=== PATIENT | female | born 1965 | race Caucasian/White ===

== ENCOUNTER 2024-06-29 18:35 | Emergency (ER) | payer OTHER, MEDICAID, SELFPAY ==
[2024-06-29 18:46] VITALS: BP 147/87; PULSE 66; RESP 18; TEMP 36.6; O2SAT 99; BMI 19.2
--- NOTE | 2024-06-30 01:04 | ED.NAVMDI ---
HPI - Nausea/Vomiting/Diarrhea General Chief complaint: Nausea/Vomiting/Diarrhea Stated complaint: states has a parasite coming out of her History of Present Illness HPI Narrative: Patient left without being seen by provider Related Data Allergies Allergy/AdvReac Type Severity Reaction Status Date / Time No Known Drug Allergies Allergy Verified 06/29/24 18:45 Patient History Social History Smoking Status: Current every day smoker Smoking Status: Current every day smoker tobacco type: cigarettes alcohol intake frequency: other Substance Use Type: marijuana Exam Initial Vital Signs Initial Vital Signs: Vital Signs Temperature 97.8 F 06/29/24 18:46 Pulse Rate 66 06/29/24 18:46 Respiratory Rate 18 06/29/24 18:46 Blood Pressure 147/87 H 06/29/24 18:46 Pulse Oximetry 99 06/29/24 18:46 Oxygen Delivery Method Room Air 06/29/24 18:46 Course Vital Signs Vital signs: Vital Signs - 8 hr 06/29/24 18:46 Temperature 97.8 F Pulse Rate 66 Respiratory Rate 18 Blood Pressure 147/87 H Pulse Oximetry 99 Oxygen Delivery Method Room Air Discharge Plan Departure Patient Disposition: Left Without Being Seen Clinical Impression: Patient left after triage
== END 2024-06-29 21:00 | disposition left against medical advice (07) ==
PROVIDERS: Emergency Provider Emergency Medicine
CPT/HCPCS: 99281